=== PATIENT | female | born 1960 | race Caucasian/White ===

== ENCOUNTER 2024-02-21 20:51 | Emergency (ER) | payer MEDICAID ==
[~2024-02-21] VITALS: Ht 152.4 cm; Wt 68.0 kg
[2024-02-21 21:05] VITALS: BP 101/59; PULSE 109; RESP 20; TEMP 97.4; O2SAT 98
[2024-02-21] MEDS: predniSONE 20 MG TAB PO ONE (21:53)
[2024-02-21] MEDS: FAMOTIDINE 20 MG TAB PO ONE (21:53)
[2024-02-21] MEDS: diphenhydrAMINE 50 MG/ML VIAL IM ONE (21:57)
[2024-02-21] MEDS ORDERED: DIPH25TA53 PO (22:33)
[2024-02-21] MEDS ORDERED: PRED20TA5 PO (22:33)
== END 2024-02-21 22:41 | disposition home or self-care (01) ==
LOC: MED 20:51
DX: T63.461A Toxic effect of venom of wasps, accidental (unintentional), initial encounter (principal); Z79.899 Other long term (current) drug therapy; Y92.89 Other specified places as the place of occurrence of the external cause
CPT/HCPCS: 96372; 99283; J1200; J7512